=== PATIENT | female | born 1990 | race African-American/Black ===

== ENCOUNTER → 2018-06-27 | Outpatient (CLI) | payer OTHER | LOC: COL.RAD 13:24 | DX: S09.90XA Unspecified injury of head, initial encounter (principal) ==

== ENCOUNTER 2020-10-13 12:49 | Emergency (ER) | payer MEDICAID ==
[~2020-10-13] VITALS: Ht 152.4 cm; Wt 53.2 kg
[2020-10-13 13:25] VITALS: BP 114/68; TEMP 98.3
== END 2020-10-13 14:46 | disposition home or self-care (01) ==
LOC: COL.ER 12:49
DX: S90.32XA Contusion of left foot, initial encounter (principal); W20.8XXA Other cause of strike by thrown, projected or falling object, initial encounter